=== PATIENT | female | born 1935 | race Caucasian/White ===

== ENCOUNTER → 2016-05-30 | Outpatient (CLI) | payer MEDICARE, BC ==
[~2016-05-30] MED LIST: ASA CHILDREN'S81 MG PO; CALCIUM 600 +1 EAC3 PO; DUREZOL5 ML OD; ELIQUIS5 MG PO; POLYMYXIN B OS; RESTASIS1 EACH OU; TRIMETHOPRIM OS
== END | disposition home or self-care (01) ==
LOC: RAD.S 13:50
DX: Z12.31 Encounter for screening mammogram for malignant neoplasm of breast (principal)